=== PATIENT | male | born 1965 | race African-American/Black ===

== ENCOUNTER 2019-05-08 06:12 | Day surgery (SDC) | payer OTHER ==
[2019-05-07 09:43] VITALS: BMI 29.3
--- NOTE | 2019-05-08 07:54 | HP ---
History & Physical Update - History History: No Change - Physical Physical: No Change - Assessment Assessment: No Change - Plan Plan: No Change
--- NOTE | 2019-05-08 07:56 | OP ---
Operative Note - Note: Operative Date: 05/08/19 Pre-Operative Diagnosis: prostate cancer Operation: prostate cryoablation and cystoscopy Post-Operative Diagnosis: Same as Pre-op Surgeon: Quique Briggs Anesthesiologist/TRAFFIC CONTROL OFFICER: Daina Yoo MD Anesthesia: General Estimated Blood Loss (mls): 0 Drains & Tubes with Location: 18 fr lama Operative Report Dictated: Yes
[2019-05-08] MEDS ORDERED: MIDAZOLAM HCL 2 MG/2 ML SINGLE DOSE VIAL ONE (07:58)
[2019-05-08] MEDS ORDERED: PROPOFOL 20 ML ONE ×2 (08:03→08:12)
[2019-05-08] MEDS ORDERED: ROCURONIUM BROMIDE 50 MG/5 ML SYRINGE ONE ×2 (08:03→09:23)
[2019-05-08] MEDS ORDERED: fentaNYL CITRATE 250 MCG/5 ML VIAL ONE (08:03)
[2019-05-08] MEDS ORDERED: ceFAZolin SODIUM 1 GM VIAL IVPB ONE (08:15)
[2019-05-08] MEDS ORDERED: BACITRACIN 15 GM TUBE TOPICAL OINTMENT ONE (09:42)
[2019-05-08] MEDS ORDERED: DEXAMETHASONE SOD PHOSPHATE 4 MG/1 ML VIAL ONE (09:47)
[2019-05-08] MEDS ORDERED: GLYCOPYRROLATE 0.2 MG/1 ML VIAL ONE (09:47)
[2019-05-08] MEDS ORDERED: NEOSTIGMINE METHYLSULFATE 0.5 MG/1 ML - 10 ML MDV ONE (09:47)
[2019-05-08] MEDS ORDERED: LIDOCAINE HCL/PF 2% SDV 5ML VIAL ONE (09:47)
[2019-05-08] MEDS ORDERED: oxyCODONE HCL 5 MG TABLET PO PRN (10:20)
[2019-05-08] MEDS ORDERED: ONDANSETRON 4 MG/2 ML VIAL IVPUSH PRN (10:20)
[2019-05-08] MEDS ORDERED: LACTATED RINGERS SOLUTION 1,000 ML IV SCH (10:30)
[2019-05-08] MEDS ORDERED: ACETAMINOPHEN INJECTION 100 ML IVPB ONE (11:10)
[2019-05-08] MEDS ORDERED: ACETAMINOPHEN 1000 MG/100 ML VIAL (NON FORMULARY) IVPB ONE (11:12)
--- NOTE | 2019-05-08 11:12 | OP ---
DATE OF OPERATION: 05/08/2019 PREOPERATIVE DIAGNOSIS: Prostate cancer. POSTOPERATIVE DIAGNOSIS: Prostate cancer. PROCEDURE: Prostate cryoablation and cystoscopy. SURGEON: Quique Briggs MD HUMAN RELATIONS PROFESSOR: None. ANESTHESIA: General via endotracheal tube. ANESTHESIOLOGIST: Daina Yoo MD SPECIMENS: None. CULTURES: None. DRAINS: 18-Niuean Saxena catheter. ESTIMATED BLOOD LOSS: Negligible. COMPLICATIONS: None. DESCRIPTION OF PROCEDURE: Patient was brought into the operating room. Placed on the operating room table in the supine position. After administration of general anesthesia via endotracheal tube, intravenous antibiotics were administered. Sequential compression devices were placed. Genitals and perineum were prepped and draped in usual sterile manner. An 18-Niuean Saxena catheter was placed per urethra into the bladder; 10 mL was placed in the balloon. Placed on gravity drainage and then the bladder was filled with 400 mL with sterile normal saline and clamped. Transrectal ultrasound probe was placed per rectum, and transrectal ultrasound of the prostate was done, and a plan was devised for a cryoablation of the prostate using 8 probes. Now the 8 probes were placed in the appropriate locations. Two temperature sensors were placed, 1 in external sphincter, 1 in Denonvilliers' fascia. Now cystoscopy was performed. Demonstrated no probes penetrated the prostatic urethra or the bladder. Bladder was thoroughly inspected. There were no foreign bodies, tumors, stones, inflammation. Both ureteral orifices were in their usual location with a clear efflux bilaterally. The Super Stiff guidewire was passed through the cystoscope into the bladder, and the cystoscope was removed. The urethral warmer was passed over the guidewire, and the guidewire was removed. Urethral warming was started. Now the cryoablation was done using 2 freeze/thaw cycles. At the end of the procedure, the cryoablation temperature probes were removed leaving the urethral warmer in place for an additional 5 minutes. That was then removed, and the 18-Niuean Saxena catheter was replaced, placed on gravity drainage, returned clear. He tolerated the procedure well. Sterile compressive dressing was placed on the perineum consisting of a 4 x 4, bacitracin, and Tegaderm. Transferred to recovery in stable condition. Richard [id number]
[2019-05-08] MEDS ORDERED: HYDROmorphone HCl 2 MG/ML VIAL ONE (12:02)
[2019-05-08] MEDS ORDERED: HYDROmorphone HCl 2 MG/ML VIAL IVPUSH ONE ×2 (12:05→12:07)
[2019-05-08] MEDS ORDERED: ONDANSETRON 4 MG/2 ML VIAL ONE ×2 (13:05→13:43)
[2019-05-08] MEDS ORDERED: ONDANSETRON 4 MG/2 ML VIAL IVPB ONE (13:50)
[2019-05-08] MEDS ORDERED: oxyCODONE HCL 5 MG TABLET ONE (14:01)
[2019-05-08 14:15] VITALS: TEMP 97.7
[2019-05-08 16:50] VITALS: BP 110/60; PULSE 80
== END 2019-05-08 16:30 | disposition home or self-care (01) ==
LOC: JASU-SURG 06:12
PROVIDERS: ATTEND Urology
PROC: 0V503ZZ Destruction of Prostate, Percutaneous Approach (ICD-10-PCS; principal; 2019-05-08 08:00)
DX: C61 Malignant neoplasm of prostate (principal)
CPT/HCPCS: 55873; C2618; 94760; J0131

== ENCOUNTER 2019-06-05 11:15 | Inpatient (IN) | payer OTHER ==
[2019-06-05 12:19] VITALS: BMI 30.1
[2019-06-05] MEDS ORDERED: oxyCODONE/APAP 1 EACH - MUST ORDER COMBO PRODUCT NR ONE (13:30)
[2019-06-05] MEDS ORDERED: MIDAZOLAM HCL 2 MG/2 ML SINGLE DOSE VIAL ONE (14:06)
[2019-06-05] MEDS ORDERED: ceFAZolin SODIUM 1 GM VIAL IVPB ONE (14:30)
--- NOTE | 2019-06-05 15:31 | OP ---
Operative Note - Note: Operative Date: 06/05/19 Pre-Operative Diagnosis: urinary retention, prostate cancer, BPH Operation: bipolar turp Findings: SERRANO Post-Operative Diagnosis: Same as Pre-op Surgeon: Quique Briggs Anesthesiologist/ELEVATORS INSPECTOR: Ursula Cabezas Anesthesia: General Estimated Blood Loss (mls): 200 Drains & Tubes with Location: [address] 30 ml lama Operative Report Dictated: Yes
[2019-06-05] MEDS ORDERED: oxyCODONE HCL 5 MG TABLET PO PRN (15:35)
[2019-06-05] MEDS ORDERED: DOCUSATE SODIUM 100 MG CAPSULE (FP) PO PRN (15:35)
[2019-06-05] MEDS ORDERED: ACETAMINOPHEN 325 MG TABLET (FP) PO PRN (15:38)
[2019-06-05] MEDS ORDERED: ONDANSETRON 4 MG/2 ML VIAL IVPUSH PRN (15:47)
--- NOTE | 2019-06-05 15:58 | OP ---
DATE OF OPERATION: 06/05/2019 PREOPERATIVE DIAGNOSIS: Urinary retention, prostate cancer, benign prostatic hypertrophy. POSTOPERATIVE DIAGNOSIS: Urinary retention, prostate cancer, benign prostatic hypertrophy. PROCEDURE: Bipolar transurethral resection of the prostate. SURGEON: Quqiue Briggs MD LEGAL ASSISTANT: None. ANESTHESIA: General via endotracheal tube. ANESTHESIOLOGIST: DEON Iyer SPECIMENS: Prostate tissue. CULTURES: None. DRAINS: A 22-Kenyan 3-way Saxena catheter with 30-mL balloon. ESTIMATED BLOOD LOSS: 200 mL. COMPLICATIONS: None. PROCEDURE: Patient was brought into the operating room. Placed on the operating room table in supine position. After administration of intravenous sedation, intravenous antibiotics were administered. General anesthesia was administered via endotracheal tube, and sequential compression devices were placed. Indwelling Saxena catheter was removed. Genitals were prepped and draped in the usual sterile manner, 26-Kenyan resectoscope sheath with visualizing obturator was inserted into the bladder under direct vision. The anterior urethra was normal. The prostatic urethra measured approximately 5 cm in length. Demonstrated severe trilobar occlusion. The bladder was entered. Thoroughly inspected. There were no foreign bodies, tumors, stones, inflammation. Both ureteral orifices were in their usual location with a clear efflux bilaterally. The working element of Samuels resectoscope was now inserted, and TURP was performed in a standard fashion by first creating a groove left lateral lobe to 2 o'clock position from the area of the bladder neck to the verumontanum down to the level of the capsular fibers. The left lateral lobe was then sequentially resected from the 2 to the 6 o'clock position from the area of the bladder neck to the verumontanum down to the level of the capsular fibers. In a similar manner, the right lateral lobe of the prostate was resected. The roof of the prostate was resected, and the floor of the prostate was resected. All resected prostatic tissue was removed from the bladder using the Ellik evacuator. Hemostasis was assured with electrocautery. Both ureteral orifices were intact at the end of the procedure. All resected prostatic tissue was removed from Ellik evacuator, and all obstructive tissue from the bladder neck to the verumontanum was resected down to capsular fibers. He tolerated the procedure well. The bladder was left full. Instrument removed, and a 22-Kenyan 3-way Saxena catheter was inserted in the bladder; 30 mL was placed in the balloon. Placed on continuous bladder irrigation. Returned minimally blood tinged. He tolerated procedure well. Transferred to recovery room in stable condition. QUIQUE BRIGGS M.D. [id number]
[2019-06-05] MEDS ORDERED: HYDROmorphone HCl 2 MG/ML VIAL ONE (17:13)
[2019-06-05] MEDS ORDERED: HYDROmorphone HCl 2 MG/ML VIAL IVPB PRN (17:45)
[2019-06-05] MEDS: LACTATED RINGERS SOLUTION 1,000 ML IV SCH ×2 (20:00→21:00)
--- NOTE | 2019-06-06 12:30 | PN ---
Progress Note (short form) - Note Progress Note: 54M s/p TURP under GA. No new c/o. Vital Signs Temp 97.9 F 06/06/19 06:00 Pulse 75 06/06/19 06:00 Resp 18 06/06/19 06:00 BP 138/87 06/06/19 06:00 Pulse Ox 99 06/05/19 20:39 Intake & Output 06/05/19 06/06/19 06/06/19 23:59 11:59 23:59 Intake Total 1700 Output Total 150 Balance 1550 -71183 Weight 198 lb Intake: IV 1700 Output: Urine Saxena Estimated Blood Loss 150 Other: Voiding Method Indwelling Catheter Height 5 ft 8 in Body Mass Index (BMI) 30.1 Weight Measurement Method Estimated by Patient - NO anesthesia complications
[2019-06-07 05:57] VITALS: BP 151/94; PULSE 89; TEMP 98.8
[2019-06-07] MEDS: LACTATED RINGERS SOLUTION 1,000 ML IV SCH (09:14)
--- NOTE | 2019-06-09 15:51 | PATH ---
Surgical Pathology Report Patient Name: KENA VAZQUEZ Med. Rec. #: [id number] /Age/Gender: 1965 (Age: 54) / M Account: [id number] Location: [address] [place] [address]/[facility] Taken: 06/05/2019 Received: 06/08/2019 Reported: 06/09/2019 Physicians: Quique Briggs M.D. Specimen(s) Received PROSTATE CHIPS Clinical History Urinary retention, BPH, history of prostate cancer status post cryoablation Final Diagnosis PROSTATE CHIPS, BIPOLAR TRANSURETHRAL RESECTION OF PROSTATE: BENIGN PROSTATIC TISSUE WITH ACUTE AND CHRONIC INFLAMMATION, VASCULAR CONGESTION, HEMORRHAGE, AND STROMAL HYPERPLASIA. UROTHELIAL MUCOSA WITH ACUTE AND CHRONIC INFLAMMATION, EDEMA, HEMORRHAGE, REACTIVE CHANGES, AND FOCAL SQUAMOUS METAPLASIA. Electronically Signed Stephanie Yeh M.D. Gross Description Received in formalin labeled "prostate chips," is an 8 g, 8.4 x 5.7 x 0.5 cm aggregate of multiple almaguer-brown, irregular, firm to rubbery portion of tissue, consistent with prostate chips. The specimen is entirely submitted in 8 cassettes. /06/08/2019 saudi06/08/2019
== END 2019-06-07 13:45 | disposition home or self-care (01) | DRG 482 ==
LOC: JASUSAT 11:15 → JASU-SURG 11:15 → JASUSAT 13:28 → J6S 20:55
PROVIDERS: ADMIT Urology; ATTEND Urology
PROC: 0VT08ZZ Resection of Prostate, Via Natural or Artificial Opening Endoscopic (ICD-10-PCS; principal; 2019-06-05 13:30)
DX: C61 Malignant neoplasm of prostate (principal); N40.1 Benign prostatic hyperplasia with lower urinary tract symptoms; R33.8 Other retention of urine; R35.0 Frequency of micturition; R97.20 Elevated prostate specific antigen [PSA]; F52.4 Premature ejaculation
CPT/HCPCS: 88305-TC; 94760